=== PATIENT | female | born 1970 | race African-American/Black ===

== ENCOUNTER 2021-12-31 07:22 | Outpatient (CLI) | payer OTHER, SELFPAY | END 2021-12-31 07:23 | disposition home or self-care (01) | LOC: OP CLINIC 07:22 | PROVIDERS: PCP Family Medicine; Visit Provider Surgery | DX: Z12.11 Encounter for screening for malignant neoplasm of colon (principal); K63.5 Polyp of colon; K62.1 Rectal polyp; K57.30 Diverticulosis of large intestine without perforation or abscess without bleeding | CPT/HCPCS: 45385; 88305; 99153; J2250; J3010 ==

== ENCOUNTER 2024-02-26 13:52 | Outpatient (CLI) | payer OTHER, SELFPAY ==
[2024-02-29 02:58] LABS: HPV Source Cervical; HPV, High Risk by TMA Not Detected
== END 2024-02-26 13:53 | disposition home or self-care (01) ==
PROVIDERS: PCP Family Medicine; Visit Provider Obstetrics & Gynecology
DX: Z01.419 Encounter for gynecological examination (general) (routine) without abnormal findings (principal); Z12.4 Encounter for screening for malignant neoplasm of cervix; Z11.51 Encounter for screening for human papillomavirus (HPV)
CPT/HCPCS: 87624; 87625; 88141; 88142

== ENCOUNTER 2024-06-22 18:39 | Outpatient (CLI) | payer BC, SELFPAY ==
--- NOTE | 2024-06-22 19:00 | CRLHL7_ITS ---
For Patients: As a result of the Century Cures Act, medical imaging exams and procedure reports are released immediately into your electronic medical record. You may view this report before your referring provider. If you have questions, please contact your health care provider. BILATERAL SCREENING MAMMOGRAM WITH COMPUTER-AIDED DETECTION AND TOMOSYNTHESIS TECHNIQUE: CC and MLO views were obtained. These mammographic images have been obtained using full-field digital technique. These mammographic images were interpreted with the benefit of computer-aided detection. Breast tomosynthesis was used in this interpretation. COMPARISON FILM: 01/20/23, 02/07/21, 06/22/19. FINDINGS: There are scattered areas of fibroglandular density. IMPRESSION: There is no radiographic evidence for malignancy. ASSESSMENT: BI-RADS Category 1: Negative RECOMMENDATION: Routine screening mammogram in 1 year. A lay language report of this examination will be provided to the patient. BLADIMIR VILLARREAL M.D. Diagnostic Radiologist [email or web address] Transcribed: 06/25/2024, 1:[address]/Dictated by: Bladimir Villarreal MD @ 06/25/2024 10:01:00 AM (Electronically Signed)
== END 2024-06-22 18:40 | disposition home or self-care (01) ==
LOC: MAMMO 18:42
PROVIDERS: PCP Family Medicine; Visit Provider Obstetrics & Gynecology
DX: Z12.31 Encounter for screening mammogram for malignant neoplasm of breast (principal)
CPT/HCPCS: 77063; 77067